=== PATIENT | male | born 2000 | race African-American/Black ===

== ENCOUNTER 2025-03-12 19:24 | Outpatient (REF) | payer BC, SELFPAY ==
--- NOTE | ~2025-03-12 | MR_ITS ---
CLINICAL HISTORY: RT SHOULDER PAIN Exam: Nonenhanced MRI of the right shoulder. Comparison: None. Rotator cuff: Supraspinatus and infraspinatus tendons appear intact, with no definable tears or significant tendinopathy. Subscapularis tendon appears intact. Glenoid labrum: There is a small anterior superior glenoid labral tear (5; 12 and 13). No other labral tears. Bicipital tendon: Bicipital tendon is within its expected position in the intertubercular groove. Bicipital anchor appears intact. Acromioclavicular joint: There is fluid within the acromioclavicular joint space and mild surrounding edema, suggesting acromioclavicular arthropathy. Joint space and soft tissues: No significant glenohumeral joint effusion or bursal collection. Impression: 1. Small anterior superior glenoid labral tear. 2. Acromioclavicular arthropathy as described above. This document has been electronically signed by: Antelmo Virk MD on 03/12/2025 20:48:46
--- OUTSIDE RECORDS SUMMARY | 2025-03-12 19:34 | XMS_ITS | Clinical Summary ---
Author Organization [facility] Address [address] [place] [address] Care Team Providers Care Solar Installation Technician Name Role Phone Unavailable Primary Care Provider Unavailabl e Social History Tobacco Use Types Packs/Day Years Used Date Smoking Tobacco: Never Assessed Sex and Gender Information Value Date Recorded Sex Assigned at Not on file Legal Sex Male 9:37 AM EST Gender Identity Not on file Sexual Orientation Not on file Plan of Treatment Health Maintenance Due Date Last Done Comments HPV Vaccines (1 - Male 3-dos e series) 2016 Meningococcal B Vaccine (1 o f 2 - Standard) 2017 DTaP,Tdap,and Td Vaccines (1 - Tdap) 2020 Hepatitis B Vaccines (1 of 3 - 19+ 3-dose series) 2020 Depression Screening 05/20/2024 COVID-19 Vaccine (1 - 2023-2 5 season) 2025 Influenza Vaccine (#1) 2025 RSV Immunization Adult Patie nts (1 - 1-dose 75+ series) 2076 HIB Vaccines Aged Out No longer eligi ble based on patient's age to complete this topic Hepatitis A Vaccines Aged Out No long er eligible based on patient's age to complete this topic IPV Vaccines Aged Out No longer eligi ble based on patient's age to complete this topic MMR Vaccines Aged Out No longer eligi ble based on patient's age to complete this topic Meningococcal ACWY Vaccine Aged Out N o longer eligible based on patient's age to complete this topic Pneumococcal Vaccine: Pediat rics (0 to 5 Years) and At-Risk Patients (6 to 49 Years) Aged Out No longer eligible b ased on patient's age to complete this topic RSV Immunization Patients Un damian 20 months Aged Out No longer eligible b ased on patient's age to complete this topic Varicella Vaccines Aged Out No longer eligible based on patient's age to complete this topic
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
--- OUTSIDE RECORDS SUMMARY | 2025-03-12 19:34 | XMS_ITS | Clinical Summary ---
Author Organization [facility] Address [address] [place] [address] Care Team Providers Care Agricultural Education Professor Name Role Phone Soto Jean MD Primary Care Provider [phone] Allergies No known active allergies Medications methocarbamol (ROBAXIN) 500 MG tablet Take 2 tablets (1,000 mg total) by mouth 4 times daily (every 6 hours) as needed for muscle spasms. 20 tablet 05/12/2024 Active ibuprofen (MOTRIN) 600 MG tablet Take 1 tablet (600 mg total) by mouth every 6 (six) hours. 30 tablet 05/12/2024 Active Immunizations Immunization Administration Dates Next Due Covid-19 Adenovirus Vaccine - Tad 08/28/2020 Social History Tobacco Use Types Packs/Day Years Used Date Smoking Tobacco: Never Assessed Sex and Gender Information Value Date Recorded Sex Assigned at Male 05/12/2024 4:12 PM EST Legal Sex Male 4:33 PM EDT Gender Identity Male 05/12/2024 4:12 PM EST Sexual Orientation Heterosexual (straight) 05/12 4:12 PM EST Last Filed Vital Signs Vital Sign Reading Time Taken Comments Blood Pressure 134/73 05/12/2024 2:38 PM EST Pulse 81 05/12/2024 2:38 PM EST Temperature 36.9 C (98.4 F) 05/12/2024 2:38 PM EST Respiratory Rate 18 05/12/2024 2:38 PM EST Oxygen Saturation 99% 05/12/2024 2:38 PM EST Inhaled Oxygen Concentration - - Weight - - Height - - Body Mass Index - - Plan of Treatment Health Maintenance Due Date Last Done Comments Hepatitis C Virus Screening 2001 HIV Screening 2014 HPV Vaccines (1 - Male 3-dos e series) 2016 DTaP/Tdap/Td Vaccines (1 - Tdap) 2020 Hepatitis B Vaccines (1 of 3 - 19+ 3-dose series) 2020 Influenza Vaccine 12/18/2024 COVID-19 Vaccine (3 - 2024-2 6 season) 2025 05/17/2021, 08/28/2020 Pneumococcal Vaccine: Pediatric (0-5 Years) and At-Risk Patients (6 to 49 Years) Aged Out No longer eligible b ased on patient's age to complete this topic Insurance [employer] [facility] [employer] OUT OF [facility] Care Teams Agricultural Education Professor Relationship Specialty Start Date End Date Soto Jean MD [address] [facility] [address] [place] [address] PCP - General Pediatric, General 05/12/24
--- OUTSIDE RECORDS SUMMARY | 2025-03-12 19:35 | XMS_ITS | Clinical Summary ---
Author Organization [facility] Address [address] [place] [address] Care Team Providers Care Gas Plant Repairer Name Role Phone Unavailable Primary Care Provider Unavailabl e Social History Tobacco Use Types Packs/Day Years Used Date Smoking Tobacco: Never Assessed Sex and Gender Information Value Date Recorded Sex Assigned at Not on file Gender Identity Not on file Sexual Orientation Not on file Plan of Treatment Health Maintenance Due Date Last Done Comments Hepatitis B Vaccines (1 of 3 - 3-dose series) 2001 Hepatitis C Screening 2001 COVID-19 Vaccine (#1) 04/10/2002 Depression Screening 2013 Preventative Health Evaluation 10/09/2019 DTap / Tdap / Td (1 - Tdap) 2020 Influenza Vaccine (#1) 2025 Pneumococcal Vaccine Aged Out No long er eligible based on patient's age to complete this topic RSV Ped < 20 months Aged Out No longe r eligible based on patient's age to complete this topic
== END 2025-03-12 19:25 | disposition home or self-care (01) ==
LOC: HO.MRI 19:24
PROVIDERS: Visit Provider Family Medicine
DX: M25.511 Pain in right shoulder (principal)
CPT/HCPCS: 73221

== ENCOUNTER → 2025-03-12 19:39 | Outpatient (BNV) | payer BC, SELFPAY | PROVIDERS: Visit Provider Radiology Diagnostic Radiology | DX: S43.431A Superior glenoid labrum lesion of right shoulder, initial encounter (principal); M19.011 Primary osteoarthritis, right shoulder | CPT/HCPCS: 73221 ==